=== PATIENT | female | born 1995 | race African-American/Black ===

== ENCOUNTER 2017-10-29 11:40 | Emergency (ER) | payer BC ==
[2017-10-29 12:21] LABS: Bilirubin Negative (Negative); Blood, Urine Negative (Negative); Clarity CLEAR (Clear); Glucose, Urine (Dipstick) Negative (Negative); Leukocyte Negative (Negative); Nitrite Negative (Negative); Protein, Urine (Dipstick) Trace mg/dL (Neg-Trace); Specific Gravity, Urine 1.018 (1.002-1.036); pH, Urine 8.5 (5.0-9.0)
[2017-10-29 12:24] LABS: Pregnancy Test - Urine (BHCG) POSITIVE (Negative); Pregu Control Background? CLEAR/WHITE (CLR/WHITE); Pregu Control Bar Appear? YES (CONTROL BAR); Specific Gravity 1.018 (1.002-1.036)
[2017-10-29 12:39] LABS: #Basophils 0.1 thou/uL (0.0-0.2); #Eosinphils 0.2 thou/uL (0.0-0.7); #Lymphocytes 2.3 thou/uL (1.20-3.40); #Monocytes 0.5 thou/uL (0.11-0.59); #Neutrophils 3.8 thou/uL (1.40-6.50); %Basophils 1.2 % (0.0-1.0); %Eosinophils 3.3 % (0.0-10.0); %Lymphocytes 33.3 % (21.0-51.0); %Monocytes 7.7 % (0.0-10.0); %Neutrophils 54.5 % (42.0-75.0); Hemoglobin 12.6 g/dL (12.0-16.0); Mean Corpuscular HGB CONC 35.1 g/dL (32.0-36.0); Mean Corpuscular Hemoglobin 32.6 pg (27.0-31.0); Mean Corpuscular Volume 92.8 fl (81.0-99.0); Mean Platelet Volume 7.8 fL (7.4-10.4); Platelet Count 244 thou/uL (130-400); Red Blood Cell (RBC) Count 3.88 mill/uL (4.20-5.40); White Blood Cell (WBC) Count 6.9 thou/uL (4.8-10.8)
--- NOTE | 2017-10-29 15:51 | ULT ---
TRANSABDOMINAL AND TRANSVAGINAL PELVIC ULTRASOUND WITH DOPPLER: DATE: 10/29/17. PROVIDED CLINICAL HISTORY: Pelvic cramping. FINDINGS: The uterus measures about 10.6 x 5.4 x 6.2 cm. Endometrial thickening is seen without evidence for a n endometrial fluid collection to suggest gestational sac. The ovaries appear sonographically unrema rkable with color Doppler and spectral analysis demonstrated bilateral ovarian flow. There is eviden ce for mild free fluid within the pelvic cul-de-sac. IMPRESSION: No evidence for an intrauterine gestational sac. Ectopic could not be excluded on the basi s of this study alone. Correlation serial beta HCG values recommended. POS: [facility]
== END 2017-10-29 14:50 | disposition home or self-care (01) ==
LOC: ERS 11:40
DX: O20.0 Threatened abortion (principal)
CPT/HCPCS: 36415; 76856; 81003; 81025; 84702; 85025; 86900; 86901

== ENCOUNTER 2018-01-31 16:08 | Emergency (ER) | payer BC ==
[2018-01-31] MEDS ORDERED: Ondansetron HCl/PF 4 MG/2 ML Vial ONE ×2 (16:15→16:48)
[2018-01-31 16:37] LABS: #Basophils 0.1 thou/uL (0.0-0.2); #Eosinphils 0.1 thou/uL (0.0-0.7); #Lymphocytes 3.2 thou/uL (1.20-3.40); #Monocytes 0.6 thou/uL (0.11-0.59); #Neutrophils 5.8 thou/uL (1.40-6.50); %Basophils 0.9 % (0.0-1.0); %Eosinophils 1.3 % (0.0-10.0); %Lymphocytes 32.7 % (21.0-51.0); %Monocytes 6.1 % (0.0-10.0); %Neutrophils 59.1 % (42.0-75.0); Mean Corpuscular HGB CONC 34.7 g/dL (32.0-36.0); Mean Corpuscular Hemoglobin 32.6 pg (27.0-31.0); Mean Corpuscular Volume 94.1 fL (78.0-98.0); Mean Platelet Volume 7.9 fL (7.4-10.4); Platelet Count 241 thou/uL (130-400); RBC Distribution Width 12.1 % (11.5-14.5); White Blood Cell (WBC) Count 9.7 thou/uL (4.8-10.8)
[2018-01-31 16:58] LABS: ALT (SGPT) 11 U/L (8-55); AST (SGOT) 12 U/L (5-34); Albumin 4.4 g/dL (3.5-5.0); Alkaline Phosphatase 58 U/L (40-150); Anion Gap 15 mmol/L (10-20); BUN (Urea Nitrogen) 6 mg/dL (7.0-18.7); Bilirubin, Total 0.9 mg/dL (0.2-1.2); Calc. Creatinine Clearance 0 mL/min (70-130); Calcium 9.9 mg/dL (7.8-10.44); Carbon Dioxide 22 mmol/L (22-29); Chloride 106 mmol/L (98-107); Estimated GFR-MDRD Greater than 90; Globulin 3.4 g/dL (2.4-3.5); Glucose 98 mg/dL (70-105); Lipase 25 U/L (8-78); Potassium 3.6 mmol/L (3.5-5.1); Protein, Total 7.8 g/dL (6.0-8.3); Sodium 139 mmol/L (136-145)
[2018-01-31 17:01] LABS: BHCG - Serum Negative (NEGATIVE); Pregs Control Background? CLEAR/WHITE (CLR/WHITE); Pregs Control Bar Appear? YES (CONTROL BAR)
[2018-01-31 18:14] LABS: Bilirubin Negative (Negative); Blood, Urine Negative (Negative); Clarity CLEAR (Clear); Glucose, Urine (Dipstick) Negative (Negative); Leukocyte Negative (Negative); Nitrite Negative (Negative); Protein, Urine (Dipstick) Negative (Neg-Trace); Specific Gravity, Urine 1.019 (1.002-1.036); Urobilinogen 0.2 mg/dL (0.2-1.0)
== END 2018-01-31 20:00 | disposition home or self-care (01) ==
LOC: ERS 16:08
DX: R11.2 Nausea with vomiting, unspecified (principal)
CPT/HCPCS: 80053; 81003; 83690; 84703; 85025; 93005; 96361; 96372; 96374; J2405

== ENCOUNTER 2018-04-08 00:24 | Emergency (ER) | payer BC | END 2018-04-08 02:41 | disposition home or self-care (01) | LOC: ERS 00:24 | DX: O20.0 Threatened abortion (principal); Z3A.01 Less than 8 weeks gestation of pregnancy | CPT/HCPCS: 36415; 84702; 86900; 86901 ==

== ENCOUNTER 2018-09-04 17:17 | Day surgery (SDC) | payer BC, OTHER ==
[2018-09-04 17:40] VITALS: BMI 29.8
[2018-09-04 18:59] LABS: FFN Internal QC Analyzer PASS (PASS); FFN Internal QC Cassette PASS (PASS); Fetal Fibronectin Negative (Negative)
--- NOTE | 2018-09-04 20:56 | ULT ---
LIMITED OB ULTRASOUND: History: Evaluate for position and cervical length. Pelvic cramping, pain. FINDINGS: Limited OB ultrasound demonstrates a single intrauterine gestation, breech presentation. heart tones at the rate of 139 beats/minute. Cervical length is 3.7 cm. IMPRESSION: 1. 3.7 cm cervical length. 2. Breech presentation. POS: [facility]
--- NOTE | 2018-09-04 21:03 | PRG ---
DATE OF SERVICE: 09/04/2018 PRESENTING COMPLAINT: Lower abdominal and back pain, constipation for 5 days, 26 weeks gestation. HISTORY OF PRESENT ILLNESS: Ms. Milligan is a 23-year-old, G2, P1, with previous x1, who sees Dr. Guerra. She reports that she is having lower abdominal and back pain. She also relates she has not had a bowel movement for 5 days, had significant problems with constipation and reflux during this . She reports active fetus. 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 PAST MEDICAL HISTORY: Denies. PAST SURGICAL HISTORY: Denies. ALLERGIES: DENIES. MEDICINES: vitamins. SOCIAL HISTORY: Denies tobacco, alcohol, or drug use. FAMILY HISTORY: Noncontributory. REVIEW OF SYSTEMS: Noncontributory. PHYSICAL EXAMINATION: GENERAL: Black female resting comfortably. VITAL SIGNS: 98.2, pulse 76, respirations 18, blood pressure 107/56. HEENT: Within normal limits. LUNGS: Clear to auscultation bilaterally. HEART: Regular rate and rhythm. ABDOMEN: Soft, nontender without palpable contractions. Fundal height 26 cm. FHTs 140s. No CVA tenderness is noted. No external genitalia abnormalities are noted. PELVIC: Deferred. EXTREMITIES: No clubbing, cyanosis, or edema. fibronectin collected prior to cervical length was negative. Limited ultrasound was performed, which revealed a fetus in utero with FHTs 140s and cervical length of 3.6 cm. No evidence of placenta previa. IMPRESSION: Discomforts of with chronic constipation at 26 weeks gestation. PLAN: Discharge home. Keep scheduled followup. Recommended milk of magnesia x1 to x2 doses, then daily. MiraLAX to maintain normal bowel movement frequency. ER precautions and follow up with Dr. Guerra. Job ID: [id number]
== END 2018-09-04 20:57 | disposition home or self-care (01) ==
LOC: L&D/OP 17:17
PROVIDERS: ATTEND Obstetrics & Gynecology
DX: O26.892 Other specified pregnancy related conditions, second trimester (principal); R10.30 Lower abdominal pain, unspecified; M54.9 Dorsalgia, unspecified; O99.612 Diseases of the digestive system complicating pregnancy, second trimester; K59.00 Constipation, unspecified; Z3A.26 26 weeks gestation of pregnancy; Z79.899 Other long term (current) drug therapy
CPT/HCPCS: 76815; 82731; 99283

== ENCOUNTER 2018-11-19 15:24 | Day surgery (SDC) | payer BC, OTHER ==
[2018-11-19 16:17] VITALS: BMI 30.7
--- NOTE | 2018-11-19 16:52 | PDOC.LDHP ---
Labor and Delivery H&P Chief complaint: other (bleeding/cramping) HPI: 23 yo @ 37.4 presents for abd cramping and vaginal bleeding. Pt reports bright blood in toilet this am and blood after wiping. She reports some associated cramping. Since onset of symptoms pt has not had any recurrence of bleeding and cramping has stopped. Denies abd pain, dysuria, frequency and urgency. Reports pos movement. Denies discharge. 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 Current complications: other (HSV) Current medications: other (acyclovir, pepcid) Previous surgical history: none Allergies/Adverse Reactions: Allergies Allergy/AdvReac Type Severity Reaction Status Date / Time No Known Allergies Allergy Verified 11/19/18 16:01 Social history: none - Physical Exam Vital signs reviewed and normal: yes General: NAD Heart: RRR Lungs: nonlabored breathing Abdomen: gravid Extremeties: trace edema FHT: category 1 [place] contractions every: None - Vaginal Exam cm dilated: 1 (No bleeding on exam) Effacement: 50% Station: -3 - OB Labs Blood type: unknown RH: unknown Antibody Screen: unknown HIV: unknown RPR: unknown HEPSAg: unknown 1 hour GCT: unknown GBS: unknown - Plan Plan: observation in L&D -: 1) Vaginal bleeding: - check UA - bedside US showed grossly normal SALONI, good tone, breathing, good movement - EFM reactive strip - will check UA w/ reflex culture - No ctx on monitor, DC to home pending UA.
[2018-11-19 16:58] LABS: Bilirubin Negative (Negative); Blood, Urine Negative (Negative); Clarity CLEAR (Clear); Glucose, Urine (Dipstick) Negative (Negative); Leukocyte Small (Negative); Nitrite Negative (Negative); Protein, Urine (Dipstick) Trace mg/dL (Neg-Trace); Specific Gravity, Urine 1.023 (1.002-1.036); pH, Urine 7.5 (5.0-9.0)
[2018-11-19 17:00] LABS: Bacteria/HPF None Seen HPF (None Seen); Hyaline Casts/LPF 0-3 HYALINE CAST LPF (0-3 Hyaline); Pathc Cast-AUWi Flag 0.27 (0-2.49); RBC/HPF 0-3 HPF (0-3); Squamous Epithelial 0-3 HPF (0-3); WBC/HPF 0-3 HPF (0-3)
[2018-11-19 17:03] LABS: Urine Culture Reflex Yes Yes
== END 2018-11-19 17:29 | disposition home health service (06) ==
LOC: L&D/OP 15:24
PROVIDERS: ATTEND Obstetrics & Gynecology
DX: O99.89 Other specified diseases and conditions complicating pregnancy, childbirth and the puerperium (principal); N89.8 Other specified noninflammatory disorders of vagina; R10.9 Unspecified abdominal pain; O98.513 Other viral diseases complicating pregnancy, third trimester; B00.9 Herpesviral infection, unspecified; Z3A.37 37 weeks gestation of pregnancy; Z79.899 Other long term (current) drug therapy
CPT/HCPCS: 76815; 81001; 87086; 99283

== ENCOUNTER 2018-11-20 08:09 | Day surgery (SDC) | payer BC, OTHER ==
[2018-11-20 08:34] VITALS: BMI 30.7
[2018-11-20] MEDS ORDERED: Promethazine HCl 25 MG/ML VIAL IM/IV PRN (09:31)
--- NOTE | 2018-11-20 09:59 | PRG ---
DATE OF SERVICE: 11/20/2018 TIME OF SERVICE: 0930 hours. PRESENTING COMPLAINT: Nausea and contractions with vomiting x1 at 37 weeks' gestation. HISTORY OF PRESENT ILLNESS: Ms. Milligan is a G5, P1, AB3, spontaneous 1, elective 2, who sees Dr. Guerra. She has a history of genital HSV, is on suppression. She presented yesterday with contractions, was noted be 150, -3. She reports nausea and vomiting this morning and continued contractions. She took a hot bath and did not have any improvement. She denies rupture of membranes. Reports an active fetus. 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 O positive, group B strep negative. MEDICAL HISTORY: Denies. SURGICAL HISTORY: Elective term. ALLERGIES: DENIES. MEDICATIONS: vitamins and Valtrex. SOCIAL HISTORY: Denies tobacco, alcohol, or drug use. FAMILY HISTORY: Noncontributory. REVIEW OF SYSTEMS: Noncontributory. PHYSICAL EXAMINATION: GENERAL: Black female, complaining of occasional contractions. VITAL SIGNS: Blood pressure 98/56, respirations 18, pulse 92, temperature 98.7. HEENT: Within normal limits. LUNGS: Clear to auscultation bilaterally. HEART: Regular rate and rhythm. ABDOMEN: Soft and nontender with occasional indentable contractions. FHTs 130s, full without lesions. Vagina, whitish discharge. Cervix 150, -3, cephalic, ballots with ease. EXTREMITIES: No clubbing, cyanosis, or edema. Prolonged monitoring is carried out, which revealed a category 1 heart rate tracing with occasional contractions. IMPRESSION: Nausea possibly secondary to gastroenteritis or prodromal labor, no evidence of active labor. PLAN: Reassured the patient. ER precautions. We will administer Phenergan IM 25 mg x1. Discharge home. The patient to keep scheduled followup in [address] Guerra. Job ID: [id number]
== END 2018-11-20 10:00 | disposition home health service (06) ==
LOC: L&D/OP 08:09
PROVIDERS: ATTEND Obstetrics & Gynecology
DX: O47.1 False labor at or after 37 completed weeks of gestation (principal); O99.89 Other specified diseases and conditions complicating pregnancy, childbirth and the puerperium; R11.2 Nausea with vomiting, unspecified; Z3A.37 37 weeks gestation of pregnancy
CPT/HCPCS: 96372; 99282; J2550